=== PATIENT | female | born 1935 | race Caucasian/White ===

== ENCOUNTER 2019-10-08 13:28 | Emergency (ER) | payer MEDICARE ==
[~2019-10-08] VITALS: Ht 162.6 cm; Wt 66.8 kg
[~2019-10-08 13:28] MED LIST: LEVO25TA2 PO; RAMI5CAP65 PO; XAL0.005OS EACHEYE
[2019-10-08] MEDS ORDERED: morphine 4 MG/ML inj SYRINge IV ONE (14:20)
[2019-10-08] MEDS ORDERED: ondansetron/PF 4mg/2ml inj IV ONE (14:20)
[2019-10-08] MEDS ORDERED: ketorolac trometh. 30mg/ml inj. IV ONE (15:15)
[2019-10-08] MEDS ORDERED: NAPR-56 PO (15:29)
[2019-10-08] MEDS ORDERED: HYDR-4353 PO (15:29)
--- NOTE | 2019-10-08 15:51 | NUR ---
tech made aware of ortho orders
[2019-10-09] MEDS ORDERED: TRAM50TA2 PO (18:23)
[2019-10-09] MEDS ORDERED: ONDA4TAB6 PO (18:23)
== END 2019-10-08 16:07 | disposition home or self-care (01) ==
LOC: ER 13:29 → MERGE 13:29 → ER 16:07
DX: S42.251A Displaced fracture of greater tuberosity of right humerus, initial encounter for closed fracture (principal); I10 Essential (primary) hypertension; Z90.710 Acquired absence of both cervix and uterus; Z79.899 Other long term (current) drug therapy; W01.0XXA Fall on same level from slipping, tripping and stumbling without subsequent striking against object, initial encounter; Y93.89 Activity, other specified; Y92.89 Other specified places as the place of occurrence of the external cause; Y99.9 Unspecified external cause status
CPT/HCPCS: 29105; 73030; 96374; 96375; 99284; J1885; J2270; J2405

== ENCOUNTER 2019-10-09 16:05 | Emergency (ER) | payer MEDICARE ==
[~2019-10-09] VITALS: Ht 162.6 cm; Wt 68.0 kg
[~2019-10-09 16:05] MED LIST changes: +HYDR-4353 PO; +NAPR-56 PO
[2019-10-09] MEDS ORDERED: normal saline 1000ML IV soln IVB ONE (16:45)
[2019-10-09] MEDS ORDERED: ondansetron/PF 4mg/2ml inj IV ONE (16:45)
[2019-10-09 17:16] LABS: BASOPHILS % (AUTO) 0.1 % (0-1); EOSINOPHILS % (AUTO) 0.1 % (0-6); HEMATOCRIT 34.9 % (35.0-45.0); HEMOGLOBIN 11.6 g/dl (12.0-16.0); LYMPHOCYTES # (AUTO) 1.1 X10'3 (1.1-4.8); LYMPHOCYTES % (AUTO) 12.7 % (21-51); MEAN CORPUSCULAR HEMOGLOBIN 29.5 PG (27.0-31.0); MEAN CORPUSCULAR HGB CONC 33.1 g/dL (33.0-36.5); MEAN CORPUSCULAR VOLUME 88.9 FL (78-98); MEAN PLATELET VOLUME 9.4 FL (7.4-10.4); MONOCYTES # (AUTO) 0.4 X10'3 (0-0.9); MONOCYTES % (AUTO) 4.8 % (2-12); NEUTROPHILS # (AUTO) 7.2 X10'3 (1.8-7.7); NEUTROPHILS % (AUTO) 82.3 % (42-75); PLATELET COUNT 267 X10'3 (140-440); RED BLOOD COUNT 3.92 X10'6 (4.20-5.60); RED CELL DISTRIBUTION WIDTH 14.3 % (11.5-14.5); WHITE BLOOD COUNT 8.7 X10'3 (4.5-11.0)
[2019-10-09 17:28] LABS: ALANINE AMINOTRANSFERASE 31 U/L (12-78); ALBUMIN 3.5 G/DL (3.4-5.0); ALKALINE PHOSPHATASE 91 IU/L (46-116); ANION GAP 9 (8-16); ASPARTATE AMINO TRANSFERASE 34 U/L (10-37); BILIRUBIN,TOTAL 0.6 MG/DL (0.1-1.0); BLOOD UREA NITROGEN 25 MG/DL (7-18); CALCIUM 8.6 MG/DL (8.5-10.1); CHLORIDE 99 MMOL/L (99-107); CREATININE 0.96 MG/DL (0.40-0.90); GLUCOSE 117 MG/DL (70-104); LIPASE 252 U/L (73-393); MAGNESIUM 1.8 MG/DL (1.5-2.4); SODIUM 135 MMOL/L (135-145); TOTAL PROTEIN 7.1 G/DL (6.4-8.2); eGFR 56 ML/MIN
[2019-10-09] MEDS ORDERED: ketorolac trometh. 30mg/ml inj. IV ONE (17:40)
[2019-10-09] MEDS ORDERED: proCHLORperazine 10 MG/2 ml inj IV ONE (17:55)
[2019-10-09] MEDS ORDERED: ONDA4TAB6 PO (18:23)
[2019-10-09] MEDS ORDERED: TRAM50TA2 PO (18:23)
[2019-10-09 19:56] LABS: CLARITY,URINE CLEAR (Clear); COLOR,URINE YELLOW (Yellow); GLUCOSE, URINE NEGATIVE (Neg); KETONES,URINE 40 mg/dl (Neg); LEUKOCYTE ESTERASE ,URINE NEGATIVE (Neg); NITRITES, URINE NEGATIVE (Neg); OCCULT BLOOD,URINE NEGATIVE (Neg); PH,URINE 5.5 (4.8-8.0); PROTEIN,URINE NEGATIVE (Neg); UROBILINOGEN,URINE 0.2 E.U/dL (0.2-1.0)
[2019-10-09 20:00] LABS: UA COLLECTION TYPE CLN CATCH MIDSTREAM
== END 2019-10-09 20:28 | disposition home or self-care (01) ==
LOC: MERGE 16:06 → ER 16:06
DX: R11.2 Nausea with vomiting, unspecified (principal); I10 Essential (primary) hypertension; Z90.89 Acquired absence of other organs; Z90.49 Acquired absence of other specified parts of digestive tract; Z90.710 Acquired absence of both cervix and uterus; Z79.899 Other long term (current) drug therapy
CPT/HCPCS: 36415; 80053; 81003; 83605; 83690; 83735; 84484; 85025; 93005; 96361; 96374; 96375; 99285; J0780; J1885; J2405; J7030